=== PATIENT | male | born 1990 | race Caucasian/White ===

== ENCOUNTER 2018-04-13 21:26 | Emergency (ER) | payer BC ==
[2018-04-13] MEDS ORDERED: OXYGEN 2L AT NIGHT (21:35)
--- NOTE | 2018-04-13 21:38 | ER Report ---
History and Physical Time Seen By MD: 21:38 Hx. of Stated Complaint: PT HAVING PANIC ATACKS. ALSO HAS BEEN STRUGLING WITH DEPRESSION HPI/ROS CHIEF COMPLAINT: panic attacks. HISTORY OF PRESENT ILLNESS: This is a 27 year old male. He has a history of depression. Has been having increased anxiety this week with two new panic attacks. Has never had panic attacks in the past. Has been on Wellbutrin, Prozac and Effexor in the past for depression. He set up an appointment with [facility], but it is not until next Friday, 8 days away. He has had some suicidal thoughts, but not currently and no plan. No other concerns. Allergies: Coded Allergies: No Known Drug Allergies (Unverified , 04/13/18) Home Meds Active Scripts Hydroxyzine Hcl (HYDROXYZINE HCL) 25 Mg Tablet, 25 MG PO Q6H PRN for ANXIETY, #20 TAB 0 Refills Prov:DAI EMERY MD 04/13/18 Lorazepam (ATIVAN) 0.5 Mg Tablet, 0.5 MG PO Q6H PRN for ANXIETY, #8 TAB 0 Refills Prov:DAI EMERY MD 04/13/18 Reported Medications [Oxygen 2L At Night ] No Conflict Check 04/13/18 Reviewed Nurses Notes: Yes Hx Substance Use Disorder: No Hx Alcohol Use: Yes (OCC) Constitutional Vital Sign - Last 24 Hours 04/13/18 04/13/18 04/13/18 04/13/18 21:29 21:29 21:41 21:45 Temp 99.7 Pulse 88 89 Resp 16 B/P (MAP) 130/79 130/79 (96) 128/89 (102) Pulse Ox 96 95 O2 Delivery Room Air 04/13/18 04/13/18 21:56 22:00 Pulse 91 B/P (MAP) 125/87 (100) Pulse Ox 94 Physical Exam General: Alert, no acute distress. Eyes: Pupils are equal, round with normal sclera. Cardiovascular: Regular rate and rhythm. Respiratory: Normal breathing, no distress. Skin: No rashes. Medical Decision Making ED Course/Re-evaluation ED Course Discussed options for treatment. We talked about starting Wellbutrin or an SSRI, but the patient would prefer to wait for his evaluation with [facility]. We talked about short acting medicines to help abort a panic attack. Cristóbal discussion about these being a short term option, and not appropriate for fci treatment. Will try hydroxyzine, and can try low dose of Ativan for now. Small prescriptions for each was given. Decision to Disposition Date: Apr 13, 2018 Decision to Disposition Time: 21:50 Depart Departure Latest Vital Signs Vital Signs Date Time Temp Pulse Resp B/P (MAP) Pulse Ox O2 Delivery O2 Flow Rate FiO2 04/13/18 22:00 125/87 (100) 04/13/18 21:56 91 94 04/13/18 21:29 99.7 16 Room Air Impression: Primary Impression: Panic attack Condition: Improved Disposition: HOME OR SELF-CARE New Scripts Hydroxyzine Hcl (HYDROXYZINE HCL) 25 Mg Tablet 25 MG PO Q6H PRN for ANXIETY, #20 TAB 0 Refills Prov: DAI EMERY MD 04/13/18 Lorazepam (ATIVAN) 0.5 Mg Tablet 0.5 MG PO Q6H PRN for ANXIETY, #8 TAB 0 Refills Prov: DAI EMERY MD 04/13/18 Patient Instructions: Panic Attack (ED), Panic Disorder (ED) Additional Instructions: Keep your follow-up with [facility] as planned. While waiting for your appointment, we can try some short acting medicines to help abort the panic attacks when they come on. These medicines are temporary and will not be used fci. The first is Hydroxyzine 25mg. Take one every 6 hours as needed for panic attack. This medicine will make you drowsy. The second is Ativan 0.5mg, Take one every 6 hours as needed for panic attack. This will also make you drowsy. This medicine can be habit forming with prolonged use. Return for worsening symptoms including if your depression is worsening with suicidal ideation. DAI EMERY MD Apr 13, 2018 21:38
[2018-04-13] MEDS ORDERED: hydrOXYzine 25 MG TAB TH 2 TAB/BOTTLE PO ONE (21:50)
[2018-04-13] MEDS ORDERED: LORazepam 0.5 MG TAB PO ONE (21:50)
[2018-04-13] MEDS ORDERED: LORA-1455 PO (21:52)
[2018-04-13] MEDS ORDERED: HYDR-4225 PO (21:52)
[2018-04-13 22:00] VITALS: BP 125/87
== END 2018-04-13 22:11 | disposition home or self-care (01) ==
LOC: ER 21:45
DX: F41.0 Panic disorder [episodic paroxysmal anxiety] (principal)
CPT/HCPCS: 99283